=== PATIENT | female | born 1950 | race African-American/Black ===

== ENCOUNTER 2022-05-08 11:51 | Inpatient (IN) | payer OTHER ==
[~2022-05-08] VITALS: Ht 170.2 cm; Wt 74.4 kg
[2022-05-08] MEDS ORDERED: SODIUM CHLORIDE 0.9% 1,000 ML IV NR (13:00)
[2022-05-08 13:17] LABS: BASOPHILS % 0.3 % (0.0-2.0); EOSINOPHILS % 0.1 % (0.0-5.0); HEMATOCRIT. 38.8 % (36.0-48.0); HEMOGLOBIN. 12.7 g/dL (12.0-16.0); LYMPHOCYTES % 9.1 % (20.0-50.0); MEAN CORPUSCULAR HEMOGLOBIN 27.4 pg (28.0-32.0); MEAN CORPUSCULAR VOLUME 83.7 fL (81.0-99.0); MONOCYTES % 5.4 % (2.0-8.0); NEUTROPHILS % 85.1 % (40.0-76.0); PLATELET 429 x1000/uL (130-400); RED BLOOD CELL COUNT 4.63 mill/uL (4.2-5.4); RED CELL DISTRIBUTION WIDTH 14.5 % (11.6-14.6)
[2022-05-08] MEDS ORDERED: ACETAMINOPHEN 650MG SUPP PR ONE (13:30)
[2022-05-08] MEDS ORDERED: SODIUM CHLORIDE 0.9% 1,000 ML IV ONE (13:30)
[2022-05-08 13:31] LABS: CHLORIDE 119 mEq/L (98-107)
[2022-05-08] MEDS ORDERED: CEFTRIAXONE 1 G PREMIX 50 ML IV NR (15:00)
[2022-05-08] MEDS ORDERED: DEXTROSE 5% WATER 1,000 ML IV ONE (15:00)
[2022-05-08 16:12] LABS: INR 1.1
[2022-05-08 16:36] LABS: CLARITY URINE CLOUDY (CLEAR); COLOR URINE YELLOW (YELLOW); KETONES URINE TRACE (NEGATIVE); LEUKOCYTE ESTERASE URINE NEGATIVE (NEGATIVE); NITRITE URINE NEGATIVE (NEGATIVE); OCCULT BLOOD URINE 3+ (NEGATIVE); PH URINE 5.5 (4.5-8.0); PROTEIN URINE 3+ (NEGATIVE); SPECIFIC GRAVITY URINE 1.017 (1.005-1.030); UROBILINOGEN URINE 0.2 E.U./dL (0.2-1.0)
[2022-05-08] MEDS ORDERED: CLONIDINE 0.1MG TABLET PO PRN (17:00)
[2022-05-08] MEDS ORDERED: ONDANSETRON HCL 4MG/2ML INJ IV PRN (17:00)
[2022-05-08] MEDS ORDERED: DOCUSATE SODIUM 100MG CAPSULE PO PRN (17:00)
[2022-05-08] MEDS ORDERED: ACETAMINOPHEN 325MG TABLET PO PRN ×2 (17:00)
[2022-05-08] MEDS ORDERED: IPRATROPIUM/ALBUTEROL 0.5-3(2.5)MG/3ML NEB NEB PRN (17:00)
[2022-05-08] MEDS ORDERED: MAGNESIUM/ALUMINUM HYDROXIDE/SIMETHICONE 30ML UDC PO PRN (17:00)
[2022-05-08] MEDS: ATORVASTATIN CALCIUM 10MG TABLET PO SCH (21:00)
[2022-05-08] MEDS: ENOXAPARIN 40MG/0.4ML SYR SUBCUT SCH (22:15)
[2022-05-08] MEDS ORDERED: IOHEXOL-300 100 ML BOTTLE ONE (22:49)
[2022-05-08] MEDS: DEXTROSE 5% WATER 1,000 ML IV SCH (23:00)
[2022-05-09 04:34] LABS: BASOPHILS % 0.4 % (0.0-2.0); EOSINOPHILS % 0.5 % (0.0-5.0); HEMATOCRIT. 36.3 % (36.0-48.0); HEMOGLOBIN. 11.8 g/dL (12.0-16.0); LYMPHOCYTES % 13.1 % (20.0-50.0); MEAN CORPUSCULAR HEMOGLOBIN 27.9 pg (28.0-32.0); MEAN CORPUSCULAR VOLUME 85.8 fL (81.0-99.0); MONOCYTES % 4.7 % (2.0-8.0); NEUTROPHILS % 81.3 % (40.0-76.0); PLATELET 369 x1000/uL (130-400); RED BLOOD CELL COUNT 4.23 mill/uL (4.2-5.4); RED CELL DISTRIBUTION WIDTH 14.2 % (11.6-14.6)
[2022-05-09 04:40] LABS: CHLORIDE 121 mEq/L (98-107)
[2022-05-09 04:53] LABS: HDL CHOLESTEROL 44 mg/dL (40-59); LDL CHOLESTEROL 89 mg/dL (5-100); T4 FREE 0.92 ng/dL (0.76-1.46)
[2022-05-09] MEDS: PANTOPRAZOLE 40MG DR TABLET PO SCH (07:50)
[2022-05-09] MEDS: CARBIDOPA/LEVODOPA 25/100MG TABLET CR PO SCH ×2 (09:00→16:52)
[2022-05-09] MEDS: AMLODIPINE 2.5MG TABLET PO SCH (09:00)
[2022-05-09] MEDS: MEMANTINE HCL 5MG TABLET PO SCH (09:00)
[2022-05-09] MEDS: FLUOXETINE HCL 10 MG CAPSULE PO SCH (09:00)
[2022-05-09] MEDS: DONEPEZIL HCL 10MG TABLET PO SCH (09:00)
[2022-05-09 10:28] VITALS: BP 141/117
[2022-05-09 10:35] VITALS: BP 141/117
[2022-05-09 12:00] VITALS: BP 159/90
[2022-05-09] MEDS: DEXTROSE 5% WATER 1,000 ML IV SCH (13:46)
[2022-05-09 16:00] VITALS: BP 102/73
[2022-05-09] MEDS ORDERED: CEFTRIAXONE 2 G in DEXTROSE 5% WATER 50 ML IV SCH (16:00)
[2022-05-09] MEDS: CEFTRIAXONE 2 G in DEXTROSE 5% WATER 50 ML IV SCH (17:17)
[2022-05-09 20:00] VITALS: BP 124/63
[2022-05-09] MEDS: ATORVASTATIN CALCIUM 10MG TABLET PO SCH (21:00)
[2022-05-09] MEDS: ENOXAPARIN 40MG/0.4ML SYR SUBCUT SCH (21:08)
[2022-05-09] MEDS: METRONIDAZOLE 500 MG PREMIX 100 ML IV SCH (23:49)
[2022-05-09 23:58] LABS: BASOPHILS % 0.3 % (0.0-2.0); EOSINOPHILS % 0.9 % (0.0-5.0); HEMATOCRIT. 37.5 % (36.0-48.0); HEMOGLOBIN. 12.3 g/dL (12.0-16.0); LYMPHOCYTES % 14.3 % (20.0-50.0); MEAN CORPUSCULAR HEMOGLOBIN 27.8 pg (28.0-32.0); MEAN CORPUSCULAR VOLUME 85.2 fL (81.0-99.0); MEAN PLATELET VOLUME 9.3 fl (7.4-10.4); MONOCYTES % 4.5 % (2.0-8.0); PLATELET 392 x1000/uL (130-400); RED BLOOD CELL COUNT 4.41 mill/uL (4.2-5.4); RED CELL DISTRIBUTION WIDTH 14.4 % (11.6-14.6)
[2022-05-10] VITALS: BP 119/71
[2022-05-10 04:00] VITALS: BP 123/69
[2022-05-10] MEDS: METRONIDAZOLE 500 MG PREMIX 100 ML IV SCH ×3 (05:34→22:06)
[2022-05-10] MEDS: PANTOPRAZOLE 40MG DR TABLET PO SCH (06:55)
[2022-05-10] MEDS ORDERED: LIDOCAINE HCL/PF 1% 10 MG/ML 5ML VIAL ONE (07:40)
[2022-05-10 08:00] VITALS: BP 131/76
[2022-05-10] MEDS: FLUOXETINE HCL 10 MG CAPSULE PO SCH (09:00)
[2022-05-10] MEDS ORDERED: SODIUM CHLORIDE 0.45% 1,000 ML IV SCH (09:00)
[2022-05-10] MEDS: DONEPEZIL HCL 10MG TABLET PO SCH (09:00)
[2022-05-10] MEDS: AMLODIPINE 2.5MG TABLET PO SCH (09:00)
[2022-05-10] MEDS: CARBIDOPA/LEVODOPA 25/100MG TABLET CR PO SCH (09:00)
[2022-05-10] MEDS: MEMANTINE HCL 5MG TABLET PO SCH (09:00)
[2022-05-10] MEDS ORDERED: BISACODYL 10MG SUPP PR NR (10:00)
[2022-05-10 12:00] VITALS: BP 139/53
[2022-05-10 12:57] LABS: BASOPHILS % 0.3 % (0.0-2.0); EOSINOPHILS % 1.3 % (0.0-5.0); HEMATOCRIT. 34.2 % (36.0-48.0); HEMOGLOBIN. 11.1 g/dL (12.0-16.0); LYMPHOCYTES % 16.2 % (20.0-50.0); MEAN CORPUSCULAR HEMOGLOBIN 27.6 pg (28.0-32.0); MEAN CORPUSCULAR VOLUME 85.1 fL (81.0-99.0); MEAN PLATELET VOLUME 9.3 fl (7.4-10.4); MONOCYTES % 4.4 % (2.0-8.0); NEUTROPHILS % 77.8 % (40.0-76.0); PLATELET 381 x1000/uL (130-400); RED BLOOD CELL COUNT 4.02 mill/uL (4.2-5.4); RED CELL DISTRIBUTION WIDTH 14.2 % (11.6-14.6)
[2022-05-10 14:13] LABS: CHLORIDE 122 mEq/L (98-107)
[2022-05-10 14:24] LABS: PHOSPHORUS 3.1 mg/dL (2.5-4.9)
[2022-05-10 16:00] VITALS: BP 114/71
[2022-05-10] MEDS: CEFTRIAXONE 2 G in DEXTROSE 5% WATER 50 ML IV SCH (16:55)
[2022-05-10] MEDS: DEXT 5%/0.45% NACL 1000ML 1,000 ML IV SCH (16:55)
[2022-05-10 17:57] LABS: T4 FREE 1.05 ng/dL (0.76-1.46)
[2022-05-10 20:00] VITALS: BP 115/97
[2022-05-10] MEDS: ATORVASTATIN CALCIUM 10MG TABLET PO SCH (20:47)
[2022-05-10] MEDS: ENOXAPARIN 40MG/0.4ML SYR SUBCUT SCH (22:05)
[2022-05-11] VITALS: BP 111/66
[2022-05-11 01:37] LABS: CREATINE KINASE MB FRACTION 3.9 ng/mL (0.5-3.6)
[2022-05-11 04:00] VITALS: BP 110/68
[2022-05-11] MEDS: METRONIDAZOLE 500 MG PREMIX 100 ML IV SCH ×3 (06:10→22:41)
[2022-05-11] MEDS: DEXT 5%/0.45% NACL 1000ML 1,000 ML IV SCH ×2 (06:10→20:44)
[2022-05-11] MEDS: FAMOTIDINE 20MG TABLET PO SCH (06:42)
[2022-05-11 07:25] LABS: BASOPHILS % 0.3 % (0.0-2.0); EOSINOPHILS % 2.2 % (0.0-5.0); HEMATOCRIT. 32.2 % (36.0-48.0); HEMOGLOBIN. 10.6 g/dL (12.0-16.0); LYMPHOCYTES % 17.6 % (20.0-50.0); MEAN CORPUSCULAR HEMOGLOBIN 28.1 pg (28.0-32.0); MEAN CORPUSCULAR VOLUME 85.1 fL (81.0-99.0); MEAN PLATELET VOLUME 9.4 fl (7.4-10.4); MONOCYTES % 4.8 % (2.0-8.0); NEUTROPHILS % 75.1 % (40.0-76.0); PLATELET 330 x1000/uL (130-400); RED BLOOD CELL COUNT 3.78 mill/uL (4.2-5.4); RED CELL DISTRIBUTION WIDTH 14.4 % (11.6-14.6)
[2022-05-11 08:06] LABS: CHLORIDE 123 mEq/L (98-107)
[2022-05-11 08:15] LABS: CREATINE KINASE 216 IU/L (26-192); CREATINE KINASE MB FRACTION 4.1 ng/mL (0.5-3.6)
[2022-05-11] MEDS: DONEPEZIL HCL 10MG TABLET PO SCH (09:00)
[2022-05-11] MEDS: FLUOXETINE HCL 10 MG CAPSULE PO SCH (09:00)
[2022-05-11] MEDS: AMLODIPINE 2.5MG TABLET PO SCH (09:00)
[2022-05-11] MEDS: MEMANTINE HCL 5MG TABLET PO SCH (09:00)
[2022-05-11] MEDS: CARBIDOPA/LEVODOPA 25/100MG TABLET CR PO SCH ×2 (09:00→17:19)
[2022-05-11] MEDS ORDERED: KCL 20MEQ/100ML PREMIX 100 ML IV NR (11:00)
[2022-05-11] MEDS: CEFTRIAXONE 2 G in DEXTROSE 5% WATER 50 ML IV SCH (16:39)
[2022-05-11 20:00] VITALS: BP 118/66
[2022-05-11] MEDS: ATORVASTATIN CALCIUM 10MG TABLET PO SCH (21:28)
[2022-05-11] MEDS: ENOXAPARIN 40MG/0.4ML SYR SUBCUT SCH (21:28)
[2022-05-12] VITALS: BP 139/62
[2022-05-12 04:00] VITALS: BP 113/74
[2022-05-12] MEDS: FAMOTIDINE 20MG TABLET PO SCH (06:22)
[2022-05-12] MEDS: METRONIDAZOLE 500 MG PREMIX 100 ML IV SCH ×3 (06:22→22:04)
[2022-05-12 08:30] VITALS: BP 128/69
[2022-05-12] MEDS: MEMANTINE HCL 5MG TABLET PO SCH (08:37)
[2022-05-12] MEDS: DONEPEZIL HCL 10MG TABLET PO SCH (08:37)
[2022-05-12] MEDS: AMLODIPINE 2.5MG TABLET PO SCH (08:37)
[2022-05-12] MEDS: DEXT 5%/0.45% NACL 1000ML 1,000 ML IV SCH ×2 (08:38→22:04)
[2022-05-12] MEDS ORDERED: DIATR MEGLU/DIATRIZOATE SOLN 120ML ONE (10:59)
[2022-05-12 11:44] LABS: BASOPHILS % 0.4 % (0.0-2.0); HEMATOCRIT. 32.2 % (36.0-48.0); HEMOGLOBIN. 10.3 g/dL (12.0-16.0); LYMPHOCYTES % 16.4 % (20.0-50.0); MEAN CORPUSCULAR HEMOGLOBIN 27.6 pg (28.0-32.0); MEAN CORPUSCULAR VOLUME 86.6 fL (81.0-99.0); MEAN PLATELET VOLUME 9.6 fl (7.4-10.4); MONOCYTES % 3.7 % (2.0-8.0); NEUTROPHILS % 77.5 % (40.0-76.0); PLATELET 284 x1000/uL (130-400); RED BLOOD CELL COUNT 3.72 mill/uL (4.2-5.4); RED CELL DISTRIBUTION WIDTH 14.7 % (11.6-14.6)
[2022-05-12 12:00] VITALS: BP 149/67
[2022-05-12] MEDS: CARBIDOPA/LEVODOPA 25/100MG TABLET CR PO SCH ×2 (12:11→17:02)
[2022-05-12] MEDS: FLUOXETINE HCL 10 MG CAPSULE PO SCH (12:11)
[2022-05-12 15:21] LABS: CHLORIDE 122 mEq/L (98-107)
[2022-05-12 15:25] LABS: PHOSPHORUS 2.3 mg/dL (2.5-4.9)
[2022-05-12 16:00] VITALS: BP 141/67
[2022-05-12] MEDS: CEFTRIAXONE 2 G in DEXTROSE 5% WATER 50 ML IV SCH (16:40)
[2022-05-12 20:00] VITALS: BP 140/80
[2022-05-12] MEDS: ATORVASTATIN CALCIUM 10MG TABLET PO SCH (22:05)
[2022-05-12] MEDS: ENOXAPARIN 40MG/0.4ML SYR SUBCUT SCH (22:05)
[2022-05-12] MEDS ORDERED: POTASSIUM PHOS,M-BASIC-D-BASIC 10 MMOL in DEXT 5% WATER 246.6667 ML IV NR (23:45)
[2022-05-13] VITALS: BP 125/66
[2022-05-13] MEDS ORDERED: FURO80TA87 MT (02:05)
[2022-05-13] MEDS ORDERED: APIX5TAB MT (02:05)
[2022-05-13] MEDS ORDERED: HYDR-4009 MT (02:05)
[2022-05-13] MEDS ORDERED: VIAG100 MT (02:05)
[2022-05-13] MEDS ORDERED: SACU1TAB7 MT (02:05)
[2022-05-13] MEDS ORDERED: COR25 MT (02:05)
[2022-05-13] MEDS ORDERED: ALLO300T2 MT (02:05)
[2022-05-13] MEDS ORDERED: ATOR20TA MT (02:05)
[2022-05-13 04:00] VITALS: BP 131/77
[2022-05-13 05:49] LABS: BASOPHILS % 0.3 % (0.0-2.0); HEMATOCRIT. 35.5 % (36.0-48.0); HEMOGLOBIN. 11.7 g/dL (12.0-16.0); LYMPHOCYTES % 15.7 % (20.0-50.0); MEAN CORPUSCULAR HEMOGLOBIN 27.9 pg (28.0-32.0); MEAN CORPUSCULAR VOLUME 84.8 fL (81.0-99.0); MEAN PLATELET VOLUME 9.4 fl (7.4-10.4); MONOCYTES % 4.1 % (2.0-8.0); NEUTROPHILS % 77.9 % (40.0-76.0); PLATELET 303 x1000/uL (130-400); RED BLOOD CELL COUNT 4.18 mill/uL (4.2-5.4); RED CELL DISTRIBUTION WIDTH 13.8 % (11.6-14.6)
[2022-05-13 06:19] LABS: CHLORIDE 118 mEq/L (98-107)
[2022-05-13] MEDS: FAMOTIDINE 20MG TABLET PO SCH (06:25)
[2022-05-13] MEDS: METRONIDAZOLE 500 MG PREMIX 100 ML IV SCH ×3 (06:26→21:16)
[2022-05-13] MEDS: DEXT 5%/0.45% NACL 1000ML 1,000 ML IV SCH ×2 (06:26→21:17)
[2022-05-13 07:59] VITALS: BP 139/50
[2022-05-13] MEDS: MEMANTINE HCL 5MG TABLET PO SCH (08:16)
[2022-05-13] MEDS: AMLODIPINE 2.5MG TABLET PO SCH (08:16)
[2022-05-13] MEDS: DONEPEZIL HCL 10MG TABLET PO SCH (08:16)
[2022-05-13] MEDS: CARBIDOPA/LEVODOPA 25/100MG TABLET CR PO SCH ×2 (08:17→17:26)
[2022-05-13] MEDS: FLUOXETINE HCL 10 MG CAPSULE PO SCH (08:17)
[2022-05-13 11:28] VITALS: BP_SYST 123; BP_SYST 143; BP_DIAS 66; BP_DIAS 73
[2022-05-13] MEDS: CEFTRIAXONE 2 G in DEXTROSE 5% WATER 50 ML IV SCH (15:10)
[2022-05-13 15:35] VITALS: BP 125/68
[2022-05-13 20:00] VITALS: BP 102/66
[2022-05-13] MEDS: ATORVASTATIN CALCIUM 10MG TABLET PO SCH (21:16)
[2022-05-13] MEDS: ENOXAPARIN 40MG/0.4ML SYR SUBCUT SCH (21:17)
[2022-05-14] VITALS: BP 120/64
[2022-05-14 04:00] VITALS: BP 115/75
[2022-05-14] MEDS: FAMOTIDINE 20MG TABLET PO SCH (06:08)
[2022-05-14] MEDS: METRONIDAZOLE 500 MG PREMIX 100 ML IV SCH (06:08)
[2022-05-14 06:20] LABS: HEMATOCRIT 32.9 % (36.0-48.0); MEAN CORPUSCULAR HEMOGLOBIN 28.2 pg (28.0-32.0); MEAN CORPUSCULAR VOLUME 84.3 fL (81.0-99.0); PLATELET 280 x1000/uL (130-400); RED BLOOD CELL COUNT 3.91 mill/uL (4.2-5.4); RED CELL DISTRIBUTION WIDTH 14.2 % (11.6-14.6)
[2022-05-14 06:30] LABS: BASOPHILS % 0.3 % (0.0-2.0); EOSINOPHILS % 2.1 % (0.0-5.0); HEMATOCRIT. 32.8 % (36.0-48.0); HEMOGLOBIN. 10.9 g/dL (12.0-16.0); LYMPHOCYTES % 17.4 % (20.0-50.0); MEAN CORPUSCULAR HEMOGLOBIN 28.2 pg (28.0-32.0); MEAN PLATELET VOLUME 9.7 fl (7.4-10.4); MONOCYTES % 4.3 % (2.0-8.0); NEUTROPHILS % 75.9 % (40.0-76.0); PLATELET 279 x1000/uL (130-400); RED BLOOD CELL COUNT 3.85 mill/uL (4.2-5.4); RED CELL DISTRIBUTION WIDTH 13.9 % (11.6-14.6)
[2022-05-14 06:35] LABS: CHLORIDE 114 mEq/L (98-107)
[2022-05-14 06:43] LABS: PHOSPHORUS 2.2 mg/dL (2.5-4.9)
[2022-05-14 07:51] VITALS: BP 116/68
[2022-05-14] MEDS: MEMANTINE HCL 5MG TABLET PO SCH (08:09)
[2022-05-14] MEDS: CARBIDOPA/LEVODOPA 25/100MG TABLET CR PO SCH ×3 (08:09→16:50)
[2022-05-14] MEDS: FLUOXETINE HCL 10 MG CAPSULE PO SCH (08:09)
[2022-05-14] MEDS: DONEPEZIL HCL 10MG TABLET PO SCH (08:09)
[2022-05-14] MEDS: AMLODIPINE 2.5MG TABLET PO SCH (08:09)
[2022-05-14] MEDS ORDERED: POTASSIUM CHLORIDE 20MEQ/PACKET PO NR ×2 (09:00→20:00)
[2022-05-14 11:41] VITALS: BP 105/66
[2022-05-14] MEDS: DEXT 5%/0.45% NACL 1000ML 1,000 ML IV SCH (13:04)
[2022-05-14] MEDS: METRONIDAZOLE 500MG TABLET PO SCH ×2 (14:01→21:06)
[2022-05-14] MEDS: CEFTRIAXONE 2 G in DEXTROSE 5% WATER 50 ML IV SCH (15:50)
[2022-05-14 16:00] VITALS: BP 135/60
[2022-05-14 17:04] LABS: PHOSPHORUS 3.6 mg/dL (2.5-4.9)
[2022-05-14 20:00] VITALS: BP 101/64
[2022-05-14] MEDS: ATORVASTATIN CALCIUM 10MG TABLET PO SCH (21:03)
[2022-05-14] MEDS: ENOXAPARIN 40MG/0.4ML SYR SUBCUT SCH (21:06)
[2022-05-15] VITALS: BP 123/77
[2022-05-15] MEDS: DEXT 5%/0.45% NACL 1000ML 1,000 ML IV SCH ×2 (02:10→13:49)
[2022-05-15 04:00] VITALS: BP 90/62
[2022-05-15 06:08] LABS: BASOPHILS % 0.4 % (0.0-2.0); EOSINOPHILS % 2.4 % (0.0-5.0); HEMATOCRIT. 29.3 % (36.0-48.0); HEMOGLOBIN. 9.8 g/dL (12.0-16.0); LYMPHOCYTES % 19.4 % (20.0-50.0); MEAN CORPUSCULAR HEMOGLOBIN 27.9 pg (28.0-32.0); MEAN CORPUSCULAR VOLUME 83.8 fL (81.0-99.0); MEAN PLATELET VOLUME 9.7 fl (7.4-10.4); MONOCYTES % 5.4 % (2.0-8.0); NEUTROPHILS % 72.4 % (40.0-76.0); PLATELET 294 x1000/uL (130-400); RED CELL DISTRIBUTION WIDTH 13.9 % (11.6-14.6)
[2022-05-15] MEDS: METRONIDAZOLE 500MG TABLET PO SCH ×3 (06:52→21:53)
[2022-05-15] MEDS: FAMOTIDINE 20MG TABLET PO SCH (06:52)
[2022-05-15 08:00] VITALS: BP 116/60
[2022-05-15] MEDS: DONEPEZIL HCL 10MG TABLET PO SCH (08:25)
[2022-05-15] MEDS: MEMANTINE HCL 5MG TABLET PO SCH (08:25)
[2022-05-15] MEDS: AMLODIPINE 2.5MG TABLET PO SCH (08:28)
[2022-05-15] MEDS: FLUOXETINE HCL 10 MG CAPSULE PO SCH (08:29)
[2022-05-15] MEDS: CARBIDOPA/LEVODOPA 25/100MG TABLET CR PO SCH ×2 (08:29→16:48)
[2022-05-15] MEDS: CEFTRIAXONE 2 G in DEXTROSE 5% WATER 50 ML IV SCH (16:48)
[2022-05-15 20:00] VITALS: BP 102/69
[2022-05-15] MEDS: ENOXAPARIN 40MG/0.4ML SYR SUBCUT SCH (21:52)
[2022-05-15] MEDS: ATORVASTATIN CALCIUM 10MG TABLET PO SCH (21:52)
[2022-05-16] VITALS: BP 113/61
[2022-05-16 03:31] LABS: BASOPHILS % 0.4 % (0.0-2.0); EOSINOPHILS % 2.1 % (0.0-5.0); HEMATOCRIT. 31.3 % (36.0-48.0); HEMOGLOBIN. 10.5 g/dL (12.0-16.0); LYMPHOCYTES % 23.7 % (20.0-50.0); MEAN CORPUSCULAR VOLUME 83.7 fL (81.0-99.0); MEAN PLATELET VOLUME 9.1 fl (7.4-10.4); MONOCYTES % 5.8 % (2.0-8.0); PLATELET 304 x1000/uL (130-400); RED BLOOD CELL COUNT 3.73 mill/uL (4.2-5.4)
[2022-05-16 03:58] LABS: INR 1.1; PROTHROMBIN TIME 11.8 sec (9.6-11.0)
[2022-05-16 04:00] VITALS: BP 109/61
[2022-05-16 04:08] LABS: CHLORIDE 106 mEq/L (98-107)
[2022-05-16] MEDS: FAMOTIDINE 20MG TABLET PO SCH (05:59)
[2022-05-16] MEDS: METRONIDAZOLE 500MG TABLET PO SCH ×3 (05:59→21:46)
[2022-05-16 08:00] VITALS: BP 127/66
[2022-05-16] MEDS: CARBIDOPA/LEVODOPA 25/100MG TABLET CR PO SCH ×2 (09:45→17:28)
[2022-05-16] MEDS: AMLODIPINE 2.5MG TABLET PO SCH (09:45)
[2022-05-16] MEDS: DONEPEZIL HCL 10MG TABLET PO SCH (09:45)
[2022-05-16] MEDS: MEMANTINE HCL 5MG TABLET PO SCH (09:45)
[2022-05-16] MEDS: FLUOXETINE HCL 10 MG CAPSULE PO SCH (09:45)
[2022-05-16 12:00] VITALS: BP 123/74
[2022-05-16 16:00] VITALS: BP 112/67
[2022-05-16] MEDS: CEFTRIAXONE 2 G in DEXTROSE 5% WATER 50 ML IV SCH (17:28)
[2022-05-16 20:00] VITALS: BP 118/71
[2022-05-16] MEDS: ATORVASTATIN CALCIUM 10MG TABLET PO SCH (21:46)
[2022-05-17] VITALS: BP 104/64
[2022-05-17 04:00] VITALS: BP 111/6
[2022-05-17 05:07] LABS: INR 1.1; PROTHROMBIN TIME 11.5 sec (9.6-11.0)
[2022-05-17 05:19] LABS: BASOPHILS % 0.6 % (0.0-2.0); EOSINOPHILS % 2.4 % (0.0-5.0); HEMATOCRIT. 32.7 % (36.0-48.0); LYMPHOCYTES % 18.3 % (20.0-50.0); MEAN CORPUSCULAR HEMOGLOBIN 28.4 pg (28.0-32.0); MEAN CORPUSCULAR VOLUME 84.2 fL (81.0-99.0); MEAN PLATELET VOLUME 9.5 fl (7.4-10.4); MONOCYTES % 5.4 % (2.0-8.0); NEUTROPHILS % 73.3 % (40.0-76.0); PLATELET 312 x1000/uL (130-400); RED BLOOD CELL COUNT 3.88 mill/uL (4.2-5.4); RED CELL DISTRIBUTION WIDTH 14.1 % (11.6-14.6)
[2022-05-17] MEDS: METRONIDAZOLE 500MG TABLET PO SCH ×3 (06:00→21:27)
[2022-05-17] MEDS: FAMOTIDINE 20MG TABLET PO SCH (06:04)
[2022-05-17 08:15] VITALS: BP 124/74
[2022-05-17] MEDS: AMLODIPINE 2.5MG TABLET PO SCH (08:47)
[2022-05-17] MEDS: DONEPEZIL HCL 10MG TABLET PO SCH (08:47)
[2022-05-17] MEDS: MEMANTINE HCL 5MG TABLET PO SCH (08:47)
[2022-05-17] MEDS: FLUOXETINE HCL 10 MG CAPSULE PO SCH (08:47)
[2022-05-17] MEDS: CARBIDOPA/LEVODOPA 25/100MG TABLET CR PO SCH ×2 (08:47→16:48)
[2022-05-17 11:30] VITALS: BP 119/68
[2022-05-17] MEDS ORDERED: PROPOFOL 200MG/20ML VIAL IV ONE (12:23)
[2022-05-17] MEDS ORDERED: LABETALOL 5MG/ML SYR 20 MG/4 ML SYRINGE IV PRN (12:45)
[2022-05-17] MEDS ORDERED: HYDROMORPHONE HCL/PF 2MG/ML CPJ IV PRN (12:45)
[2022-05-17] MEDS ORDERED: ONDANSETRON HCL 4MG/2ML INJ IV PRN (12:45)
[2022-05-17] MEDS ORDERED: MEPERIDINE HCL/PF 25MG/ML CPJ IV PRN (12:45)
[2022-05-17 16:03] VITALS: BP 115/62
[2022-05-17] MEDS: CEFTRIAXONE 2 G in DEXTROSE 5% WATER 50 ML IV SCH (16:12)
[2022-05-17 20:00] VITALS: BP 125/71
[2022-05-17] MEDS: ATORVASTATIN CALCIUM 10MG TABLET PO SCH (21:27)
[2022-05-18] VITALS: BP 118/60
[2022-05-18 04:00] VITALS: BP 110/62
[2022-05-18] MEDS: METRONIDAZOLE 500MG TABLET PO SCH ×3 (05:00→21:28)
[2022-05-18] MEDS: FAMOTIDINE 20MG TABLET PO SCH (05:01)
[2022-05-18 08:00] VITALS: BP 108/70
[2022-05-18] MEDS: CARBIDOPA/LEVODOPA 25/100MG TABLET CR PO SCH ×2 (08:43→16:57)
[2022-05-18] MEDS: FLUOXETINE HCL 10 MG CAPSULE PO SCH (08:43)
[2022-05-18] MEDS: DONEPEZIL HCL 10MG TABLET PO SCH (08:43)
[2022-05-18] MEDS: MEMANTINE HCL 5MG TABLET PO SCH (08:46)
[2022-05-18] MEDS: AMLODIPINE 2.5MG TABLET PO SCH (08:47)
[2022-05-18 12:00] VITALS: BP 115/59
[2022-05-18] MEDS: CEFTRIAXONE 2 G in DEXTROSE 5% WATER 50 ML IV SCH (15:18)
[2022-05-18 16:00] VITALS: BP 117/70
[2022-05-18 20:00] VITALS: BP 120/79
[2022-05-18] MEDS: ATORVASTATIN CALCIUM 10MG TABLET PO SCH (21:28)
[2022-05-19] VITALS: BP 118/60
[2022-05-19 04:00] VITALS: BP 108/67
[2022-05-19] MEDS: FAMOTIDINE 20MG TABLET PO SCH (05:07)
[2022-05-19] MEDS: METRONIDAZOLE 500MG TABLET PO SCH ×2 (05:07→14:29)
[2022-05-19 08:00] VITALS: BP 122/76
[2022-05-19] MEDS: MEMANTINE HCL 5MG TABLET PO SCH (10:09)
[2022-05-19] MEDS: AMLODIPINE 2.5MG TABLET PO SCH (10:10)
[2022-05-19] MEDS: FLUOXETINE HCL 10 MG CAPSULE PO SCH (10:10)
[2022-05-19] MEDS: CARBIDOPA/LEVODOPA 25/100MG TABLET CR PO SCH ×2 (10:10→18:08)
[2022-05-19] MEDS: DONEPEZIL HCL 10MG TABLET PO SCH (10:10)
[2022-05-19] MEDS ORDERED: AMLO2.5T45 PO (10:21)
[2022-05-19] MEDS ORDERED: CEFD300C3 MT (10:21)
[2022-05-19] MEDS ORDERED: METR-167 PO (10:21)
[2022-05-19] MEDS ORDERED: ATOR10TA PO (10:21)
[2022-05-19] MEDS ORDERED: SINCR21 PO (10:21)
[2022-05-19] MEDS ORDERED: MEMA5TAB7 PO (10:21)
[2022-05-19 12:00] VITALS: BP 130/74
[2022-05-19 14:38] LABS: CHLORIDE 103 mEq/L (98-107)
[2022-05-19 16:00] VITALS: BP 123/66
[2022-05-19] MEDS: CEFTRIAXONE 2 G in DEXTROSE 5% WATER 50 ML IV SCH (18:08)
[2022-05-19 18:31] VITALS: BP 123/66
== END 2022-05-19 20:36 | disposition hospice, home (50) | DRG 871 ==
LOC: ER 11:51 → 8WST 15:26 → EDBEDREQTM 15:34 → EDBEDREQSVC 15:34 → EDBEDREQ 15:34 → SUPCPDRO 16:29 → ENRESERV 05-09 07:17
PROVIDERS: ADMIT Internal Medicine; ATTEND Internal Medicine
PROC: 4A00X4Z Measurement of Central Nervous Electrical Activity, External Approach (ICD-10-PCS; principal; 2022-05-10)
PROC: 02HV33Z Insertion of Infusion Device into Superior Vena Cava, Percutaneous Approach (ICD-10-PCS; 2022-05-10)
PROC: B548ZZA Ultrasonography of Superior Vena Cava, Guidance (ICD-10-PCS; 2022-05-10)
PROC: B5181ZA Fluoroscopy of Superior Vena Cava using Low Osmolar Contrast, Guidance (ICD-10-PCS; 2022-05-10)
PROC: 0DH63UZ Insertion of Feeding Device into Stomach, Percutaneous Approach (ICD-10-PCS; 2022-05-17)
DX: A41.9 Sepsis, unspecified organism (principal); G92.8 Other toxic encephalopathy; E46 Unspecified protein-calorie malnutrition; E87.0 Hyperosmolality and hypernatremia; I47.1 Supraventricular tachycardia; K57.20 Diverticulitis of large intestine with perforation and abscess without bleeding; N17.9 Acute kidney failure, unspecified; N82.3 Fistula of vagina to large intestine; G90.3 Multi-system degeneration of the autonomic nervous system; G23.1 Progressive supranuclear ophthalmoplegia [Steele-Richardson-Olszewski]; R62.7 Adult failure to thrive; I07.1 Rheumatic tricuspid insufficiency; E83.39 Other disorders of phosphorus metabolism; G20 Parkinson's disease; F02.80 Dementia in other diseases classified elsewhere, unspecified severity, without behavioral disturbance, psychotic disturbance, mood disturbance, and anxiety; I10 Essential (primary) hypertension; E87.6 Hypokalemia; R13.12 Dysphagia, oropharyngeal phase; Z20.822 Contact with and (suspected) exposure to COVID-19; Z74.01 Bed confinement status; Z79.899 Other long term (current) drug therapy; Z90.710 Acquired absence of both cervix and uterus; Z68.25 Body mass index [BMI] 25.0-25.9, adult
CPT/HCPCS: 36415; 36573; 71045; 71250; 74176; 74177; 76705; 80048; 80053; 80061; 81003; 82550; 82553; 83036; 83605; 83735; 83880; 83930; 83935; 84100; 84132; 84133; 84145; 84300; 84439; 84443; 84484; 85025; 85027; 85379; 87420; 87426; 87804; 92610; 93005; 93306; 93970; 95816; 97162; 97166; 99285; A6261; C1725; C1893; J0696; J1650; J2704; J3480; J3490; J7030; J7060; J7070; Q9963; Q9967

== ENCOUNTER 2023-07-14 11:17 | Emergency (ER) | payer OTHER ==
[~2023-07-14] VITALS: Ht 170.2 cm; Wt 64.0 kg
[~2023-07-14 11:17] MED LIST: AMLO2.5T45 PO; ATOR10TA PO; CEFD300C3 MT; MEMA5TAB7 PO; METR-167 PO; SINCR21 PO
[2023-07-14 11:20] VITALS: O2SAT 98
[2023-07-14 12:34] LABS: BASOPHILS % 0.3 % (0.0-2.0); EOSINOPHILS % 0.4 % (0.0-5.0); HEMATOCRIT. 36.6 % (36.0-48.0); LYMPHOCYTES % 25.1 % (20.0-50.0); MEAN CORPUSCULAR HEMOGLOBIN 28.2 pg (28.0-32.0); MEAN CORPUSCULAR HGB CONC 32.6 g/dL (31.0-37.0); MEAN CORPUSCULAR VOLUME 86.4 fL (81.0-99.0); MEAN PLATELET VOLUME 8.8 fl (7.4-10.4); MONOCYTES % 3.7 % (2.0-8.0); NEUTROPHILS % 70.5 % (40.0-76.0); PLATELET 251 x1000/uL (130-400); RED BLOOD CELL COUNT 4.24 mill/uL (4.2-5.4); RED CELL DISTRIBUTION WIDTH 14.8 % (11.6-14.6); WHITE BLOOD COUNT 5.8 x1000/uL (4.5-11.0)
[2023-07-14 12:45] LABS: ALANINE AMINOTRANSFERASE < 7 IU/L (10-49); ASPARTATE AMINOTRANSFERASE 20 IU/L (<34); BILIRUBIN TOTAL 0.4 mg/dL (0.1-1.0); CALCIUM 9.4 mg/dL (8.7-10.4); CARBON DIOXIDE 33 mEq/L (21-32); CHLORIDE 108 mEq/L (98-107); CREATININE 0.8 mg/dL (0.6-1.0); GLUCOSE 119 mg/dL (70-105); POTASSIUM 4.1 mEq/L (3.5-5.1); PROTEIN TOTAL 7.4 g/dL (6.0-8.3); PROTHROMBIN TIME 10.8 sec (9.6-11.0); SODIUM 143 mEq/L (136-145); UREA NITROGEN BLOOD 9 mg/dL (9-23)
[2023-07-14 12:46] LABS: TROPONIN I HIGH SENSITIVITY < 4 ng/L (3.0-34)
[2023-07-14 13:37] VITALS: BP 95/50; PULSE 72; RESP 16; TEMP 98.1
== END 2023-07-14 21:24 | disposition home or self-care (01) ==
LOC: ER 11:43
DX: R55 Syncope and collapse (principal); I10 Essential (primary) hypertension; F19.90 Other psychoactive substance use, unspecified, uncomplicated; G83.9 Paralytic syndrome, unspecified
CPT/HCPCS: 36415; 80053; 83880; 84484; 85025; 99283

== ENCOUNTER 2024-11-03 09:27 | Inpatient (IN) | payer OTHER ==
[~2024-11-03] VITALS: Ht 157.5 cm; Wt 60.3 kg
[2024-11-03 10:53] LABS: BASOPHILS % 0.4 % (0.0-2.0); EOSINOPHILS % 0.2 % (0.0-5.0); HEMOGLOBIN. 11.7 g/dL (12.0-16.0); LYMPHOCYTES % 14.5 % (20.0-50.0); MEAN CORPUSCULAR HEMOGLOBIN 28.9 pg (28.0-32.0); MEAN CORPUSCULAR HGB CONC 33.5 g/dL (31.0-37.0); MEAN CORPUSCULAR VOLUME 86.1 fL (81.0-99.0); MEAN PLATELET VOLUME 8.4 fl (7.4-10.4); MONOCYTES % 4.1 % (2.0-8.0); NEUTROPHILS % 80.8 % (40.0-76.0); PLATELET 340 x1000/uL (130-400); RED BLOOD CELL COUNT 4.07 mill/uL (4.2-5.4); RED CELL DISTRIBUTION WIDTH 13.8 % (11.6-14.6); WHITE BLOOD COUNT 5.5 x1000/uL (4.5-11.0)
[2024-11-03 10:56] LABS: CHLORIDE 101 mEq/L (98-107); POTASSIUM 4.8 mEq/L (3.5-5.1); SODIUM 138 mEq/L (136-145)
[2024-11-03 10:57] LABS: CARBON DIOXIDE 30 mEq/L (21-32)
[2024-11-03 10:58] LABS: CALCIUM 9.2 mg/dL (8.7-10.4)
[2024-11-03 11:02] LABS: CREATININE 0.7 mg/dL (0.6-1.0)
[2024-11-03 11:03] LABS: GLUCOSE 93 mg/dL (70-105); UREA NITROGEN BLOOD 21 mg/dL (9-23)
[2024-11-03 12:18] LABS: CLARITY URINE CLEAR (CLEAR); COLOR URINE YELLOW (YELLOW); GLUCOSE URINE NEGATIVE (NEGATIVE); KETONES URINE NEGATIVE (NEGATIVE); LEUKOCYTE ESTERASE URINE TRACE (NEGATIVE); NITRITE URINE NEGATIVE (NEGATIVE); OCCULT BLOOD URINE NEGATIVE (NEGATIVE); PH URINE 7.5 (4.5-8.0); PROTEIN URINE NEGATIVE (NEGATIVE); SPECIFIC GRAVITY URINE 1.012 (1.005-1.030)
[2024-11-03] MEDS: LACTULOSE 20G/30ML UDC PO ONE (13:03)
[2024-11-03 13:04] LABS: BACTERIA URINE NONE SEEN; RBC URINE 0-2 /hpf (0-2); SQUAMOUS EPITHELIAL CELL URINE 2+ /lpf (RARE/1+); WBC URINE 0-2 /hpf (0-2); YEAST URINE NONE SEEN
[2024-11-03] MEDS ORDERED: ONDANSETRON HCL 4MG/2ML INJ IV PRN (16:15)
[2024-11-03] MEDS ORDERED: DOCUSATE SODIUM 100MG CAPSULE PO PRN (16:15)
[2024-11-03] MEDS ORDERED: GUAIFENESIN 200MG/10ML SUGAR FREE UDC PO PRN (16:15)
[2024-11-03] MEDS ORDERED: IPRATROPIUM/ALBUTEROL 0.5-3(2.5)MG/3ML NEB HHN PRN (16:15)
[2024-11-03] MEDS ORDERED: MAGNESIUM/ALUMINUM HYDROXIDE/SIMETHICONE 30ML UDC PO PRN (16:15)
[2024-11-03 16:54] LABS: THYROID STIMULATING HORMONE 1.32 uIU/mL (0.55-4.78)
[2024-11-03] MEDS ORDERED: SODIUM CHLORIDE 0.9% 500 ML IV ONE (17:00)
[2024-11-03] MEDS: SODIUM CHLORIDE 0.9% 1,000 ML IV ONE (17:15)
[2024-11-03] MEDS ORDERED: PNEUMOCOCCAL 20-VAL CONJ-DIP CRM 0.5ML IM ONE (19:30)
[2024-11-03] MEDS ORDERED: BACL-141 PO (19:35)
[2024-11-03] MEDS ORDERED: LEVO50TA8 PO (19:35)
[2024-11-03 19:38] LABS: IRON 51 ug/dL (50-170)
[2024-11-03 19:41] LABS: TOTAL IRON BINDING CAPACITY 303 ug/dl (250-425)
[2024-11-03 20:00] VITALS: BP 102/52; PULSE 82; RESP 17; TEMP 36.2; O2SAT 97
[2024-11-03] MEDS: VANCOMYCIN 1.5GM/250ML 250 ML IV SCH (20:00)
[2024-11-03 20:11] LABS: INFLUENZA TYPE A Presumptive Negative (Pres. Neg.)
[2024-11-03 20:12] LABS: INFLUENZA TYPE B Presumptive Negative (Pres. Neg.)
[2024-11-03] MEDS: CEFTRIAXONE 1GM/50ML 50 ML IV SCH (21:23)
[2024-11-03] MEDS: LEVETIRACETAM 500MG/5ML CUP GT SCH (21:24)
[2024-11-03] MEDS: ENOXAPARIN 40MG/0.4ML SYR SUBCUT SCH (21:25)
[2024-11-03 21:38] LABS: FERRITIN 128 ng/mL (10-291); FOLIC ACID (FOLATE) SERUM 14.48 ng/mL (>5.38); VITAMIN B12 SERUM 1358 pg/mL (211-911)
[2024-11-03 21:51] LABS: HEPATITIS B SURFACE ANTIGEN NEGATIVE (Negative)
[2024-11-03 22:12] LABS: HEPATITIS C AB NON REACTIVE (Neg) (Negative)
[2024-11-03 23:50] VITALS: BP 102/52; PULSE 82; RESP 17; TEMP 36.2
[2024-11-04] VITALS: BP 109/55; PULSE 75; RESP 16; TEMP 36.3; O2SAT 97
[2024-11-04 04:00] VITALS: BP 109/51; PULSE 67; RESP 16; TEMP 36.4; O2SAT 98
[2024-11-04 07:14] LABS: CHLORIDE 107 mEq/L (98-107); POTASSIUM 4.2 mEq/L (3.5-5.1); SODIUM 144 mEq/L (136-145)
[2024-11-04 07:15] LABS: CALCIUM 9.1 mg/dL (8.7-10.4); CARBON DIOXIDE 29 mEq/L (21-32)
[2024-11-04 07:20] LABS: CREATININE 0.7 mg/dL (0.6-1.0)
[2024-11-04 07:21] LABS: GLUCOSE 104 mg/dL (70-105); UREA NITROGEN BLOOD 14 mg/dL (9-23)
[2024-11-04 07:42] LABS: BASOPHILS % 0.4 % (0.0-2.0); EOSINOPHILS % 0.1 % (0.0-5.0); HEMOGLOBIN. 11.1 g/dL (12.0-16.0); LYMPHOCYTES % 22.8 % (20.0-50.0); MEAN CORPUSCULAR HEMOGLOBIN 28.6 pg (28.0-32.0); MEAN CORPUSCULAR HGB CONC 33.7 g/dL (31.0-37.0); MEAN CORPUSCULAR VOLUME 84.7 fL (81.0-99.0); MEAN PLATELET VOLUME 9.1 fl (7.4-10.4); MONOCYTES % 4.5 % (2.0-8.0); NEUTROPHILS % 72.2 % (40.0-76.0); PLATELET 349 x1000/uL (130-400); RED BLOOD CELL COUNT 3.89 mill/uL (4.2-5.4); RED CELL DISTRIBUTION WIDTH 13.8 % (11.6-14.6); WHITE BLOOD COUNT 6.8 x1000/uL (4.5-11.0)
[2024-11-04] MEDS: DOCUSATE SODIUM 100MG CAPSULE PO SCH (08:28)
[2024-11-04] MEDS: PANTOPRAZOLE SODIUM 40 MG/VIAL IV SCH (08:28)
[2024-11-04] MEDS: VANCOMYCIN 750MG PREMIX 150 ML IV SCH (08:29)
[2024-11-04] MEDS: ACETAMINOPHEN 325MG TABLET GT PRN (09:52)
[2024-11-04 12:00] VITALS: BP 110/65; PULSE 72; RESP 20; TEMP 37.6; O2SAT 98
[2024-11-04 16:00] VITALS: BP 133/80; PULSE 77; RESP 20; TEMP 36.7; O2SAT 97
[2024-11-04] MEDS: POLYETHYLENE GLYCOL 3350 (17GM) 1 DOSE PACK PO SCH (16:07)
[2024-11-04] MEDS: PIPERACILLIN/TAZO 3.375G/50ML 50 ML IV SCH (18:32)
[2024-11-04 20:00] VITALS: BP 149/80; PULSE 87; RESP 20; TEMP 36.7; O2SAT 98
[2024-11-04] MEDS: SENNOSIDES 8.6MG TABLET PO SCH (20:42)
[2024-11-04] MEDS: DOCUSATE SODIUM SUGAR FREE 100MG/10ML UDC GT SCH (20:43)
[2024-11-04] MEDS ORDERED: DOCUSATE SODIUM 100MG CAPSULE PO SCH (21:00)
[2024-11-05] VITALS: BP 130/80; PULSE 92; RESP 20; TEMP 36.6; O2SAT 98
[2024-11-05 04:00] VITALS: BP 137/73; PULSE 71; RESP 18; TEMP 37; O2SAT 98
[2024-11-05 06:36] LABS: MEAN CORPUSCULAR HEMOGLOBIN 28.6 pg (28.0-32.0); MEAN CORPUSCULAR HGB CONC 33.3 g/dL (31.0-37.0); MEAN CORPUSCULAR VOLUME 85.8 fL (81.0-99.0); PLATELET 352 x1000/uL (130-400); RED BLOOD CELL COUNT 3.85 mill/uL (4.2-5.4); RED CELL DISTRIBUTION WIDTH 13.7 % (11.6-14.6); WHITE BLOOD COUNT 7.4 x1000/uL (4.5-11.0)
[2024-11-05] MEDS: VANCOMYCIN 1GM PMX (XELLIA) 200 ML IV SCH (07:02)
[2024-11-05 07:07] LABS: CARBON DIOXIDE 28 mEq/L (21-32); CHLORIDE 110 mEq/L (98-107); SODIUM 146 mEq/L (136-145)
[2024-11-05 07:08] LABS: CALCIUM 9.3 mg/dL (8.7-10.4)
[2024-11-05 07:12] LABS: CREATININE 0.8 mg/dL (0.6-1.0)
[2024-11-05 07:13] LABS: GLUCOSE 106 mg/dL (70-105); UREA NITROGEN BLOOD 14 mg/dL (9-23)
[2024-11-05 08:00] VITALS: BP 115/64; PULSE 66; RESP 18; TEMP 36.6; O2SAT 100
[2024-11-05] MEDS: SODIUM CHLORIDE 0.45% 1,000 ML IV SCH (09:38)
[2024-11-05 12:00] VITALS: BP 101/68; PULSE 86; RESP 18; TEMP 38.3; O2SAT 100
[2024-11-05] MEDS ORDERED: PIPERACILLIN/TAZO 3.375G/50ML 50 ML IV SCH (12:00)
[2024-11-05] MEDS: ACETAMINOPHEN 325MG TABLET GT PRN (12:36)
[2024-11-05 16:00] VITALS: BP 131/70; PULSE 73; RESP 18; TEMP 38.4; O2SAT 97
[2024-11-05 20:00] VITALS: BP 168/71; PULSE 77; RESP 16; TEMP 36.2; O2SAT 99
[2024-11-05] MEDS: CLONIDINE 0.1MG TABLET PO PRN (20:31)
[2024-11-05] MEDS: PIPERACILLIN/TAZO 3.375G/50ML 50 ML IV SCH (20:31)
[2024-11-06] VITALS: BP 114/52; PULSE 49; RESP 16; TEMP 36.4; O2SAT 99
[2024-11-06 04:00] VITALS: BP 124/58; PULSE 78; RESP 16; TEMP 37.1; O2SAT 100
[2024-11-06 07:30] LABS: HEMATOCRIT 29.5 % (36.0-48.0); HEMOGLOBIN 9.9 g/dL (12.0-16.0); MEAN CORPUSCULAR HEMOGLOBIN 29.1 pg (28.0-32.0); MEAN CORPUSCULAR HGB CONC 33.6 g/dL (31.0-37.0); MEAN CORPUSCULAR VOLUME 86.5 fL (81.0-99.0); PLATELET 280 x1000/uL (130-400); RED BLOOD CELL COUNT 3.42 mill/uL (4.2-5.4); RED CELL DISTRIBUTION WIDTH 13.9 % (11.6-14.6); WHITE BLOOD COUNT 5.9 x1000/uL (4.5-11.0)
[2024-11-06 07:51] LABS: CARBON DIOXIDE 27 mEq/L (21-32); CHLORIDE 109 mEq/L (98-107); SODIUM 143 mEq/L (136-145)
[2024-11-06 07:52] LABS: CALCIUM 8.8 mg/dL (8.7-10.4)
[2024-11-06 07:57] LABS: CREATININE 0.7 mg/dL (0.6-1.0); GLUCOSE 111 mg/dL (70-105); UREA NITROGEN BLOOD 12 mg/dL (9-23)
[2024-11-06 08:05] VITALS: BP 105/57; PULSE 74; RESP 18; TEMP 36.6; O2SAT 100
[2024-11-06 08:51] LABS: ALANINE AMINOTRANSFERASE 18 IU/L (10-49); ALBUMIN 3.4 g/dL (3.2-4.8); ASPARTATE AMINOTRANSFERASE 30 IU/L (<34); BILIRUBIN DIRECT 0.1 mg/dL (<=3.0); BILIRUBIN TOTAL 0.4 mg/dL (0.1-1.0); PROTEIN TOTAL 6.8 g/dL (6.0-8.3)
[2024-11-06] MEDS: ASCORBIC ACID 500 MG TABLET PO SCH (08:56)
[2024-11-06] MEDS: MULTIVITAMINS,THER W-MINERALS TABLET PO SCH (08:57)
[2024-11-06 12:00] VITALS: BP 115/52; PULSE 60; RESP 18; TEMP 36.8; O2SAT 100
[2024-11-06 16:00] VITALS: BP 114/53; PULSE 60; RESP 16; TEMP 36.7; O2SAT 99
[2024-11-06] MEDS: BISACODYL 10MG SUPP PR SCH (16:53)
[2024-11-06 20:00] VITALS: BP 137/52; PULSE 63; RESP 16; TEMP 36.2; O2SAT 98
[2024-11-06] MEDS: LACOSAMIDE 100MG/10ML ORAL SOLN GT SCH (21:34)
[2024-11-07] VITALS: BP 134/63; PULSE 76; RESP 16; TEMP 36.3; O2SAT 96
[2024-11-07 04:00] VITALS: BP 119/54; PULSE 63; RESP 16; TEMP 36.3; O2SAT 96
[2024-11-07 07:42] LABS: CHLORIDE 110 mEq/L (98-107); POTASSIUM 3.9 mEq/L (3.5-5.1); SODIUM 145 mEq/L (136-145)
[2024-11-07 07:43] LABS: CALCIUM 8.7 mg/dL (8.7-10.4); CARBON DIOXIDE 27 mEq/L (21-32)
[2024-11-07 07:48] LABS: CREATININE 0.7 mg/dL (0.6-1.0); GLUCOSE 104 mg/dL (70-105); UREA NITROGEN BLOOD 14 mg/dL (9-23)
[2024-11-07 08:00] VITALS: BP 119/51; PULSE 76; RESP 18; TEMP 36.5; O2SAT 100
[2024-11-07 08:38] LABS: BASOPHILS % 0.4 % (0.0-2.0); EOSINOPHILS % 0.2 % (0.0-5.0); HEMATOCRIT. 30.9 % (36.0-48.0); HEMOGLOBIN. 10.6 g/dL (12.0-16.0); LYMPHOCYTES % 14.7 % (20.0-50.0); MEAN CORPUSCULAR HEMOGLOBIN 29.7 pg (28.0-32.0); MEAN CORPUSCULAR HGB CONC 34.5 g/dL (31.0-37.0); MEAN CORPUSCULAR VOLUME 86.2 fL (81.0-99.0); MEAN PLATELET VOLUME 8.9 fl (7.4-10.4); MONOCYTES % 5.5 % (2.0-8.0); NEUTROPHILS % 79.2 % (40.0-76.0); PLATELET 284 x1000/uL (130-400); RED BLOOD CELL COUNT 3.58 mill/uL (4.2-5.4); RED CELL DISTRIBUTION WIDTH 13.8 % (11.6-14.6); WHITE BLOOD COUNT 7.1 x1000/uL (4.5-11.0)
[2024-11-07] MEDS: VANCOMYCIN 750MG PMX (XELLIA) 150 ML IV SCH (09:58)
[2024-11-07 12:00] VITALS: BP 124/66; PULSE 61; RESP 18; TEMP 36.9; O2SAT 97
[2024-11-07] MEDS ORDERED: SENN-362 PO (14:06)
[2024-11-07] MEDS ORDERED: POLY17PO43 PO (14:06)
[2024-11-07] MEDS ORDERED: ASCO500T20 PO (14:06)
[2024-11-07] MEDS ORDERED: LACO100T2 MT (14:12)
[2024-11-07] MEDS ORDERED: SILV50CR31 TP (14:19)
[2024-11-07 15:02] VITALS: BP 124/66; PULSE 73; TEMP 97.7; O2SAT 98
[2024-11-07 15:33] LABS: AMMONIA 37 uMol/L (<32)
[2024-11-07 16:00] VITALS: BP 124/66; PULSE 73; RESP 18; TEMP 36.5; O2SAT 98
== END 2024-11-07 17:25 | disposition home health service (06) | DRG 394 ==
LOC: ER 09:27 → EDBEDREQ 15:03 → EDBEDREQTM 15:03 → ENRESERV 15:50 → 7EST 16:56 → 8WST 17:38
PROVIDERS: ADMIT Internal Medicine; ATTEND Internal Medicine
PROC: 4A00X4Z Measurement of Central Nervous Electrical Activity, External Approach (ICD-10-PCS; principal; 2024-11-07)
DX: K94.22 Gastrostomy infection (principal); F02.84 Dementia in other diseases classified elsewhere, unspecified severity, with anxiety; L03.311 Cellulitis of abdominal wall; G93.40 Encephalopathy, unspecified; G23.1 Progressive supranuclear ophthalmoplegia [Steele-Richardson-Olszewski]; N20.0 Calculus of kidney; K56.41 Fecal impaction; G20.A1 Parkinson's disease without dyskinesia, without mention of fluctuations; Z20.822 Contact with and (suspected) exposure to COVID-19; I10 Essential (primary) hypertension; Y83.8 Other surgical procedures as the cause of abnormal reaction of the patient, or of later complication, without mention of misadventure at the time of the procedure; Y92.89 Other specified places as the place of occurrence of the external cause; D63.8 Anemia in other chronic diseases classified elsewhere; E61.1 Iron deficiency; K52.89 Other specified noninfective gastroenteritis and colitis; K82.8 Other specified diseases of gallbladder; L25.3 Unspecified contact dermatitis due to other chemical products; R13.10 Dysphagia, unspecified; R32 Unspecified urinary incontinence; Z74.01 Bed confinement status; Z79.899 Other long term (current) drug therapy; Z96.652 Presence of left artificial knee joint; L89.152 Pressure ulcer of sacral region, stage 2; R62.7 Adult failure to thrive; Z68.24 Body mass index [BMI] 24.0-24.9, adult; L89.329 Pressure ulcer of left buttock, unspecified stage; L89.319 Pressure ulcer of right buttock, unspecified stage
CPT/HCPCS: 36415; 71045; 74018; 74176; 76705; 80048; 80061; 80076; 80202; 80339; 81003; 82140; 82607; 82728; 82746; 83540; 83550; 83605; 83880; 84145; 84443; 85025; 85027; 86705; 87070; 87077; 87186; 87340; 87804; 92610; 95816; 99285; A4606; J0696; J1650; J2470; J2543; J3370

== ENCOUNTER 2024-12-04 17:45 | Emergency (ER) | payer OTHER ==
[~2024-12-04] VITALS: Ht 170.2 cm; Wt 75.0 kg
[~2024-12-04 17:45] MED LIST changes: +ASCO500T20 PO; +BACL-141 PO; +LACO100T2 MT; +LEVO50TA8 PO; -METR-167 PO; +POLY17PO43 PO; +SENN-362 PO; +SILV50CR31 TP
[2024-12-04 17:55] VITALS: O2SAT 97
[2024-12-04] MEDS: DIATR MEGLU/DIATRIZOATE SOLN 30ML PO ONE (18:45)
[2024-12-04] MEDS: DIATR MEGLU/DIATRIZOATE SOLN 30ML ONE (19:06)
[2024-12-04 20:47] VITALS: BP 111/58; PULSE 67; RESP 16; TEMP 36.7; O2SAT 100
== END 2024-12-04 20:50 | disposition home or self-care (01) ==
LOC: ER 17:45
DX: Z46.59 Encounter for fitting and adjustment of other gastrointestinal appliance and device (principal); F03.90 Unspecified dementia, unspecified severity, without behavioral disturbance, psychotic disturbance, mood disturbance, and anxiety; I10 Essential (primary) hypertension; Z79.899 Other long term (current) drug therapy
CPT/HCPCS: 99283; 74018; Q9963